=== PATIENT | male | born 1960 | race Asian ===

== ENCOUNTER 2022-10-27 12:57 | Day surgery (SDC) | payer BC ==
[~2022-10-27] VITALS: Ht 165.1 cm; Wt 68.0 kg
== END 2022-10-27 15:04 | disposition home or self-care (01) ==
LOC: OR 12:57
PROVIDERS: ATTEND Internal Medicine Gastroenterology
PROC: 0DBH8ZX Excision of Cecum, Via Natural or Artificial Opening Endoscopic, Diagnostic (ICD-10-PCS; principal; 2022-10-27)
DX: Z12.11 Encounter for screening for malignant neoplasm of colon (principal); Z80.0 Family history of malignant neoplasm of digestive organs; D12.0 Benign neoplasm of cecum; D12.2 Benign neoplasm of ascending colon; K57.30 Diverticulosis of large intestine without perforation or abscess without bleeding; K64.0 First degree hemorrhoids
CPT/HCPCS: J2704; J7120